=== PATIENT | female | born 1985 | race African-American/Black ===

== ENCOUNTER 2017-01-30 16:46 | Emergency (ER) | payer SELFPAY ==
[2017-01-30 16:54] VITALS: BP 152/69; PULSE 88; RESP 20; TEMP 98.2
--- NOTE | 2017-01-30 17:14 | ED ---
Female Urogenital HPI - General Chief complaint: Urogenital Stated complaint: Female Time Seen by Provider: 01/30/17 17:06 Source: patient, RN notes reviewed Mode of arrival: ambulatory Limitations: no limitations - History of Present Illness Initial comments: 31-year-old male presents emergency Department chief complaint vaginal discharge times one week. Patient states is a follow-up or to the. Patient states is slightly itchy but denies any pain. Patient denies any vaginal bleeding. She states is no chance though she did state that she had unprotected sex with a new partner. Patient states that she does have a history of STDs when she was younger. Patient denies abdominal pain, cramping, nausea, vomiting diarrhea constipation. Patient denies dysuria hematuria. Last Menstrual Period: 01/07/17 - Related Data Previous Rx's Medication Instructions Recorded metroNIDAZOLE [Flagyl] 500 mg PO TID #21 tab 01/30/17 Allergies Allergy/AdvReac Type Severity Reaction Status Date / Time No Known Allergies Allergy Verified 01/30/17 16:54 Review of Systems ROS Statement: Those systems with pertinent positive or pertinent negative responses have been documented in the HPI. ROS Other: All systems not noted in ROS Statement are negative. Past Medical History Past Medical History: Hypertension History of Any Multi-Drug Resistant Organisms: None Reported Past Surgical History: No Surgical Hx Reported Past Psychological History: No Psychological Hx Reported Smoking Status: Never smoker Past Alcohol Use History: Occasional General Exam Limitations: no limitations General appearance: alert, in no apparent distress Respiratory exam: Present: normal lung sounds bilaterally. Absent: respiratory distress, wheezes, rales, rhonchi, stridor Cardiovascular Exam: Present: regular rate, normal rhythm, normal heart sounds. Absent: systolic murmur, diastolic murmur, rubs, gallop, clicks GI/Abdominal exam: Present: soft, normal bowel sounds. Absent: distended, tenderness, guarding, rebound, rigid External exam: Present: normal external exam, other (Exam performed by Maggie MONIQUE) Speculum exam: Present: vaginal discharge (Clear to white discharge). Absent: vaginal bleeding By manual exam: Present: normal by manual exam Back exam: Absent: CVA tenderness (R), CVA tenderness (L) Neurological exam: Present: alert, oriented X3, CN II-XII intact Course Vital Signs 01/30/17 16:51 Temperature 98.2 F Pulse Rate 88 Respiratory 20 Rate Blood Pressure 152/69 O2 Sat by Pulse 99 Oximetry Medical Decision Making - Medical Decision Making 31-year-old male present emergency department for vaginal discharge. Patient appears to have bacterial vaginosis patient has pending cultures. Patient was treated with Flagyl at this time. Return parameters discussed. Disposition Clinical Impression: Bacterial vaginosis Disposition: HOME SELF-CARE Condition: Stable Instructions: Bacterial Vaginosis (ED) Additional Instructions: Please return to the Emergency Department if symptoms worsen or any other concerns. Prescriptions: metroNIDAZOLE [Flagyl] 500 mg PO TID #21 tab Time of Disposition: 17:31
[2017-01-30 18:31] LABS: Appearance,Urine Cloudy (Clear); Bilirubin,Urine Negative (Negative); Glucose,Urine (UA) Negative (Negative); Ketones,Urine Negative (Negative); Leukocyte Esterase,Urine Small (Negative); Mucus,Urine Occasional /hpf; Nitrite,Urine Negative (Negative); Particle Count 8264; Protein,Urine Trace (Negative); Specific Gravity,Urine 1.024 (1.001-1.035); Squamous Epithelial Cell,Urine 7 /hpf (0-4); UA Billing (MACRO vs. MICRO) MICRO; Urobilinogen,Urine <2.0 mg/dL (<2.0); WBC,Urine 1 /hpf (0-5)
== END 2017-01-30 18:00 | disposition home or self-care (01) ==
LOC: EC 16:46
DX: N76.0 Acute vaginitis (principal)
CPT/HCPCS: 81001; 81025; 87070; 87086; 87205; 87491; 87591; 87808; 99283

== ENCOUNTER 2019-12-03 21:47 | Emergency (ER) | payer OTHER ==
[2019-12-03] MEDS ORDERED: METOCLOPRAMIDE 5 MG/ML 2 ML VIAL IVP STA (22:07)
[2019-12-03] MEDS ORDERED: SODIUM CHLORIDE 0.9% 500 ML 500 ML IV ONE (22:07)
[2019-12-03] MEDS ORDERED: diphenhydrAMINE 50 MG/ML 1 ML VIAL IVP STA (22:08)
--- NOTE | 2019-12-03 22:20 | ED ---
General Adult HPI - General Chief complaint: Headache Stated complaint: Facial pain Time Seen by Provider: 12/03/19 21:58 Source: patient Mode of arrival: ambulatory Limitations: no limitations - History of Present Illness Initial comments: Patient presents the ED with her family for evaluation. Patient states that she has had pain in the region of her nose and periorbital region since yesterday. She also states that she has had a generalized headache since yesterday. Patient states that she had mild right lateral neck pain yesterday, but she att ributes that to a neck strain, and she states that her neck pain has since resolved. She denies posterior neck pain or neck stiffness. Patient denies trauma or injury, sudden onset of headache, LOC, fever or chills, focal numbness/weakness/neuro deficit, visual changes, speech problems, sore throat, cough or cold symptoms, chest pain, dyspnea, dizziness, abdominal pain, nausea or vomiting, or any other symptoms or complaints. - Related Data Previous Rx's Medication Instructions Recorded metroNIDAZOLE [Flagyl] 500 mg PO TID #21 tab 01/30/17 Allergies Allergy/AdvReac Type Severity Reaction Status Date / Time No Known Allergies Allergy Verified 12/03/19 21:52 Review of Systems ROS Statement: Those systems with pertinent positive or pertinent negative responses have been documented in the HPI. ROS Other: All systems not noted in ROS Statement are negative. Past Medical History Past Medical History: Hypertension Additional Past Medical History / Comment(s): glaucoma History of Any Multi-Drug Resistant Organisms: None Reported Past Surgical History: No Surgical Hx Reported, Section Past Psychological History: No Psychological Hx Reported Smoking Status: Never smoker Past Alcohol Use History: Occasional Past Drug Use History: None Reported General Exam Limitations: no limitations General appearance: alert, in no apparent distress Head exam: Present: atraumatic, normocephalic Eye exam: Present: normal appearance, PERRL, EOMI ENT exam: Present: normal oropharynx, mucous membranes moist Neck exam: Present: other (Trachea is in midline). Absent: tenderness, meningismus Respiratory exam: Present: normal lung sounds bilaterally. Absent: respiratory distress, wheezes, rales, rhonchi Cardiovascular Exam: Present: regular rate, normal rhythm, normal heart sounds, other (Normal radial pulses bilaterally) GI/Abdominal exam: Present: soft. Absent: distended, tenderness Extremities exam: Present: full ROM. Absent: pedal edema Neurological exam: Present: alert, oriented X3, CN II-XII intact. Absent: motor sensory deficit Psychiatric exam: Present: normal affect, normal mood Skin exam: Present: warm, dry, intact, normal color Course Vital Signs 12/03/19 12/03/19 12/04/19 21:49 23:51 00:23 Temperature 98.0 F 98.2 F Pulse Rate 101 H 77 92 Respiratory 16 14 15 Rate Blood Pressure 184/120 182/123 207/139 O2 Sat by Pulse 99 100 99 Oximetry - Reevaluation(s) Reevaluation #1: 12/04/19 01:33 Patient states that her headache/facial pain has now resolved. Patient denies development of any new symptoms while in the ED. Patient remains alert and alexandr athing comfortably. Patient's blood pressure remains elevated, but patient is currently asymptomatic. Patient states that she has a known history of hypertension for which she is supposed to be under treatment, but she is not. Was instructed to, and agrees to, follow up closely with her primary care provider for further evaluation and management of her hypertension. Patient was clearly explained return and follow-up instructions, and she was instructed to return to the ED should she develop new or worsening pain, neuro deficits, dyspnea, dizziness, chest pain, a fever, vomiting, or any other symptoms or complaints. Medical Decision Making - Medical Decision Making Patient's head CT is negative. I suspect that the patient's headache is benign in nature. Patient's headache has now resolved, and she denies development of any new symptoms while in the ED. Patient is currently asymptomatic. Patient's blood pressure remains elevated. Patient states that she has been diagnosed with hypertension in the past. I do not feel that any emergent/acute treatment of her elevated blood pressure is indicated at this time. Patient agrees to follow up with her primary care provider as an outpatient for further evaluations and management of her hypertension. Patient was clearly explained return and follow-up instructions. Patient feels comfortable with this plan. - Radiology Data Radiology results: report reviewed (Noncontrast head CT is negative) Disposition Clinical Impression: Headache, Hypertension Disposition: HOME SELF-CARE Condition: Stable Instructions (If sedation given, give patient instructions): Acute Headache (ED), Hypertension (ED) Additional Instructions: Return to the ER immediately should you develop new or worsening pain, a fever, numbness or weakness, vision or speech problems, chest pain, shortness of breath, vomiting, feeling dizzy or faint, or new or worsening symptoms. Follow up closely with your primary care provider. Is patient prescribed a controlled substance at d/c from ED?: No Referrals: None,Stated [Primary Care Provider] - 1-2 days Gisel Javier MD [REFERRING] - 1-2 days Time of Disposition: 01:35
--- NOTE | 2019-12-03 22:45 | CT ---
EXAMINATION TYPE: CT brain wo con DATE OF EXAM: 12/03/2019 COMPARISON: None HISTORY: Frontal WISDOM CT DLP: 1095.4 mGycm Automated exposure control for dose reduction was used. Ventricles and sulci appear normal. There is no mass effect nor midline shift. There is no sign of in tracranial hemorrhage. Calvarium is intact. There is no evidence of cerebral edema. IMPRESSION: Negative head CT scan.
[2019-12-04] MEDS ORDERED: HYDROmorphone 0.5 MG/0.5 ML SYRINGE IVP STA (00:06)
[2019-12-04 02:05] VITALS: BP 183/119; PULSE 86; RESP 12; TEMP 98.4
== END 2019-12-04 01:56 | disposition home or self-care (01) ==
LOC: EC 21:47
DX: I10 Essential (primary) hypertension (principal); R51 Headache
CPT/HCPCS: 70450; 99284; 96374; 96375 ×2; 96361; J1200; J2765; J1170

== ENCOUNTER → 2020-01-05 | Outpatient (CLI) | payer BC, OTHER ==
--- NOTE | 2020-01-05 12:10 | EST ---
EXERCISE STRESS DATE OF SERVICE: 01/05/2020. AGE: 34 SEX: Female HT: 5'2" WT: 208 pounds PROTOCOL: Андрей STAGE: II DURATION OF EXERCISE: 4 minutes 44 seconds HEART RATE REST: 86 BLOOD PRESSURE REST: 123/69 MAXIMUM HEART RATE ACHIEVED: 172 MAXIMUM BLOOD PRESSURE: 172/64 85% MPHR: 156 100% MPHR: 184 METS: 6.6 INDICATIONS: Hypertension. CLINICAL INFORMATION: Baseline EKG revealed normal sinus rhythm without significant ST and T-wave changes. There was voltage criteria for LVH. Patient walked for 4 minutes 44 seconds achieved a maximal heart rate of 172 beats per minute, developed fatigue, shortness of breath but did not have angina or arrhythmia. EKG did not reveal any ST-segment changes to indicate ischemia. By EKG criteria, this is a negative stress test with limited exercise capacity. The nuclear scan results which are more pertinent will be reported by the radiologist. MMODL / IJN: [id number] /
== END | disposition home or self-care (01) ==
LOC: RADNMMAIN 08:40
PROVIDERS: ATTEND Family Medicine
DX: R07.9 Chest pain, unspecified (principal)
CPT/HCPCS: 93017

== ENCOUNTER 2020-01-17 04:05 | Emergency (ER) | payer BC, OTHER ==
[2020-01-17 04:18] VITALS: RESP 18
[2020-01-17] MEDS ORDERED: KETOROLAC 60 MG/2 ML VIAL IM STA (04:48)
[2020-01-17] MEDS ORDERED: ORPHENADRINE 30 MG/ML 2 ML VIAL IM STA (04:48)
--- NOTE | 2020-01-17 04:53 | ED ---
Neck Injury/Pain HPI - General Chief Complaint: Neck Pain/Injury Stated Complaint: head/neck pain Time Seen by Provider: 01/17/20 04:35 Mode of arrival: ambulatory Limitations: no limitations - History of Present Illness Initial Comments: 's patient is a 34-year-old woman who presents to have evaluation for pain to the right side of her neck. She states that it had started a number weeks ago, and she was actually seen here for it as well. She states that since it had started this come and gone. It was acting up this evening starting about 5 hours ago. She states that she finds it difficult to turn her neck: The pain is there. She feels as if her neck and shoulder stiffness. She is not having any midline neck pain. No neurologic symptoms. No symptoms into the arm. No loss of strength or sensation. MD Complaint: neck pain -: week(s) Place: work Radiation: right lateral Severity: severe Quality: aching Consistency: intermittent Improves With: none Worsens With: movement of neck Associated Symptoms: headache Treatments Prior to Arrival: Ibuprofen - Related Data Previous Rx's Medication Instructions Recorded Ibuprofen 800 mg PO TID #20 tablet 01/17/20 Methocarbamol [Robaxin-750] 750 mg PO TID PRN #30 tablet 01/17/20 Allergies Allergy/AdvReac Type Severity Reaction Status Date / Time No Known Allergies Allergy Verified 12/03/19 21:52 Review of Systems ROS Statement: Those systems with pertinent positive or pertinent negative responses have been documented in the HPI. ROS Other: All systems not noted in ROS Statement are negative. Constitutional: Denies: fever, chills, weakness Eyes: Denies: vision change Respiratory: Denies: cough, dyspnea Cardiovascular: Denies: chest pain, palpitations, syncope Gastrointestinal: Denies: abdominal pain, nausea, vomiting Musculoskeletal: Denies: back pain Skin: Denies: rash Neurological: Denies: weakness, numbness, paresthesias Past Medical History Past Medical History: Hypertension Additional Past Medical History / Comment(s): glaucoma History of Any Multi-Drug Resistant Organisms: None Reported Past Surgical History: Section Past Psychological History: No Psychological Hx Reported Smoking Status: Never smoker Past Alcohol Use History: Occasional Past Drug Use History: None Reported General Exam Limitations: no limitations General appearance: alert, in no apparent distress Head exam: Present: atraumatic, normocephalic Eye exam: Present: normal appearance. Absent: scleral icterus, conjunctival injection Neck exam: Present: normal inspection, tenderness. Absent: meningismus, full ROM Respiratory exam: Present: normal lung sounds bilaterally. Absent: respiratory distress, wheezes, rales, rhonchi, stridor Cardiovascular Exam: Present: regular rate, normal rhythm, normal heart sounds, other (Radial pulses are symmetric and normal in strength). Absent: systolic murmur, diastolic murmur Extremities exam: Present: normal inspection Back exam: Present: normal inspection. Absent: vertebral tenderness Neurological exam: Present: alert. Absent: motor sensory deficit Skin exam: Present: warm, dry, intact, normal color. Absent: rash Course Vital Signs 01/17/20 01/17/20 04:13 05:19 Temperature 98.1 F Pulse Rate 122 H 95 Respiratory 18 18 Rate Blood Pressure 125/77 131/79 O2 Sat by Pulse 100 98 Oximetry Disposition Clinical Impression: Acute torticollis Disposition: HOME SELF-CARE Condition: Good Instructions (If sedation given, give patient instructions): Cervical Strain (ED) Prescriptions: Ibuprofen 800 mg PO TID #20 tablet Methocarbamol [Robaxin-750] 750 mg PO TID PRN #30 tablet PRN Reason: pain Is patient prescribed a controlled substance at d/c from ED?: No Referrals: Willie Santos MD [Primary Care Provider] - 1-2 days
[2020-01-17 06:23] VITALS: BP 125/85; PULSE 97; TEMP 97.8
== END 2020-01-17 06:23 | disposition home or self-care (01) ==
LOC: EC 04:05
DX: M43.6 Torticollis (principal)
CPT/HCPCS: 99283; 96372 ×2; J2360; J1885

== ENCOUNTER → 2020-01-30 | Outpatient (CLI) | payer BC, OTHER ==
--- NOTE | 2020-01-30 11:26 | USB ---
Reason for exam: clinical finding. Indicated problem(s): lump or thickening in the left breast. Physical Findings: Nurse did not find any significant physical abnormalities on exam. US Breast LT Left complete breast ultrasound includes all four quadrants, the retroareolar region and axilla. Finding demonstrates no cystic or solid lesion seen. These results were verbally communicated with the patient and result sheet given to the patient on 01/30/20. ASSESSMENT: Negative, BI-RAD 1 RECOMMENDATION: Routine screening mammogram of both breasts at age 38. Manage patient on a clinical basis.
== END | disposition home or self-care (01) ==
LOC: RADUSWWP 10:19
PROVIDERS: ATTEND Family Medicine
DX: N63.20 Unspecified lump in the left breast, unspecified quadrant (principal)

== ENCOUNTER → 2021-06-04 | Outpatient (CLI) | payer BC ==
[2021-06-04 10:50] LABS: Basophils % (A) 1 %; Eosinophils % (A) 2 %; HCT 30.9 % (34.0-46.0); HGB 9.9 gm/dL (11.4-16.0); Hypochromasia Moderate; Lymphocytes % (A) 26 %; MCH 28.9 pg (25.0-35.0); MCV 90.4 fL (80.0-100.0); Mean Platelet Volume 7.3; Monocytes % (A) 5 %; Neutrophils # (A) 4.3 k/uL (1.3-7.7); Neutrophils % (A) 64 %; Platelet Count 444 k/uL (150-450); Poikilocytosis Slight; RBC 3.42 m/uL (3.80-5.40); RDW 15.7 % (11.5-15.5); WBC 6.7 k/uL (3.8-10.6)
[2021-06-04 10:51] LABS: Eosinophils # (A) 0.1 k/uL (0-0.7); Lymphocytes # (A) 1.7 k/uL (1.0-4.8); Monocytes # (A) 0.4 k/uL (0-1.0)
== END | disposition home or self-care (01) ==
LOC: LABPAT 09:22
PROVIDERS: ATTEND Obstetrics & Gynecology
DX: Z01.812 Encounter for preprocedural laboratory examination (principal); D64.9 Anemia, unspecified; N92.1 Excessive and frequent menstruation with irregular cycle; I10 Essential (primary) hypertension
CPT/HCPCS: 85025

== ENCOUNTER 2021-06-09 06:34 | Day surgery (SDC) | payer BC ==
[2021-06-06 11:17] VITALS: BMI 37.6
[~2021-06-09 06:34] MED LIST: DEXAMETHASONE SOD PHOSPHATE 4 MG/ML 1 ML VIAL IV ONE; HYDROmorphone 0.5 MG/0.5 ML SYRINGE IVP PRN; LACTATED RINGERS 1,000 ML IV SCH; LIDOCAINE 1% (10MG/ML) FOR IV START INTRADERMA PRN; MIDAZOLAM 2 MG/2 ML VIAL IV PRN; ONDANSETRON 4 MG/2 ML VIAL IVP ONE; Pre Op ABX Message 1 EACH MISC MISCELLANE ONE
[2021-06-09 07:14] VITALS: TEMP 96.9
[2021-06-09] MEDS ORDERED: KETOROLAC 15 MG/ML 1 ML VIAL ONE (07:47)
[2021-06-09] MEDS ORDERED: PROPOFOL 10 MG/ML 20 ML VIAL IV ONE (07:47)
[2021-06-09] MEDS ORDERED: LIDOCAINE 1% INJ 10MG/ML (20 ML MDV) ONE (07:47)
--- NOTE | 2021-06-09 08:20 | P.OP ---
Date of Procedure: 06/09/21 Preoperative Diagnosis: Menorrhagia, anemia Postoperative Diagnosis: Endometrial polyps Procedure(s) Performed: Hysteroscopy, D&C, NovaSure endometrial ablation Anesthesia: HONORIOA Surgeon: Alisha Alberts Estimated Blood Loss (ml): 20 IV fluids (ml): 400 Urine output (ml): 20 Pathology: other (Endometrial curettings and polyps) Condition: stable Disposition: PACU Operative Findings: Several small benign-appearing polyps in the endometrial cavity. Description of Procedure: Patient is brought to the operating suite where a general anesthetic is administered. The appropriate timeout is performed to assure proper patient and procedural identification. Urine hCG is negative. The cervix, vagina, perineal bodies are all prepped and draped in the usual sterile fashion. Bladder is drained for approximately 20 mL of clear yellow urine. Examination under anesthesia reveals an anteverted uterus, slightly enlarged and bulky, negative adnexa bilaterally. Weighted speculum was placed into the vagina. Anterior lip of the cervix is grasped with a double-tooth tenaculum. Uterus sounds to a depth of 9 cm in the anteverted position. The cervix is gently and systematically dilated using Hanks dilators, very little resistance noted. Hysteroscope was placed and the cavity is infused with sterile saline. In inspecting the endometrial cavity there are several benign-appearing polyps noted. Decision is made to curettage with a sharp medium curette. The tissue is sent to pathology for evaluation. At this time the NovaSure wand is placed and seated. It is enabled. It is calibrated to the machine, uterine length 6.5 cm, width 4.6 cm. After the machine is turned on the cycle is completed. The wand is then reduced and removed. For 34 seconds the procedure is carried out with a power of 164 W. Introducing the hysteroscope revealed the cavity to be nicely blanched, no residual polyps or tissue noted. Double-tooth tenaculum is removed, cervix is clean and dry. All sponge needle and enhancement counts are correct at the end of the procedure. Patient is brought back to recovery room in very good condition with stable vital signs including a pulse of 81, 100% O2 saturation, blood pressure 121/73. Toradol is given prior to her leaving the operative room. She will follow-up with me in the office in 2 weeks. Written postoperative instructions are provided.
[2021-06-09 08:43] VITALS: RESP 16
[2021-06-09 09:19] VITALS: BP 155/98; PULSE 65
[2021-06-09] MEDS ORDERED: ACETAMINOPHEN TAB 325 MG TAB ONE (09:22)
[2021-06-09] MEDS ORDERED: ACETAMINOPHEN TAB 325 MG TAB PO ONE (09:23)
== END 2021-06-09 10:05 | disposition home or self-care (01) ==
LOC: OR 06:34
PROVIDERS: ATTEND Obstetrics & Gynecology
DX: N84.0 Polyp of corpus uteri (principal); N92.0 Excessive and frequent menstruation with regular cycle; I10 Essential (primary) hypertension; F32.9 Major depressive disorder, single episode, unspecified
CPT/HCPCS: 58563; 81025; 88305; J1100; J2405; J2001; J1885; J2704

== ENCOUNTER → 2021-11-19 | Outpatient (CLI) | payer BC ==
--- NOTE | 2021-11-19 12:34 | CONS ---
CONSULTATION DATE OF SERVICE: 11/19/2021 This 36-year-old lady has been evaluated in the sleep center for possible obstructive sleep apnea-hypopnea syndrome and significant excessive daytime sleepiness. HISTORY OF PRESENT ILLNESS/SLEEP-WAKE EVALUATION: Patient's usual sleep schedule on weekdays is from between midnight and 3 a.m. until 6:30 or 7 a.m. and on weekends she does not have any scheduled time. She usually wakes up about 5:30 in the morning. No problems with falling asleep, although she has a TV set in the bedroom. She snores, according to her family, and she wakes up from sleep with up to 2 episodes of nocturia. Sometimes her snoring is very mild, but sometimes it is extremely loud, according to the family. No history of hypnagogic hallucinations, sleep paralysis or cataplexy. [place] Sleepiness Scale in high range at 15. The patient may take up to 2 naps a day. PAST MEDICAL HISTORY: Positive for hypertension, allergies, exercise-induced asthma, iron deficiency anemia. PAST SURGICAL HISTORY: Uterus ablation for bleeding. . MEDICATIONS: 1. Bupropion 150 mg twice a day. 2. Losartan 100 mg once a day. 3. Chlorthalidone 25 mg once a day. 4. Diphenhydramine 25 mg 2 or 3 times a day. 5. Albuterol inhaler if necessary. SOCIAL HISTORY: Negative for smoking. Alcohol consumption occasional. FAMILY HISTORY: Heart problems, stroke. REVIEW OF SYSTEMS: Multiple awakenings from sleep, sleepiness during the day. No fevers. No double vision. No recent chest pain. No shortness of breath. No abdominal pain. No bleeding episodes. No blood in the urine. No seizure episodes. PHYSICAL EXAMINATION: GENERAL APPEARANCE: Pleasant 36-year-old -[place]ux[place] lady without distress. VITAL SIGNS: BP 128/89, HR 74, RR 16, height 5 feet 3-1/2 inches, weight 215 pounds, body mass index 37.4, temperature 97.2, oxygen saturation at room air 96%. HEENT: PERRLA, EOMI, evaluation of oropharynx showed tongue protrudes midline. Small oropharyngeal airspace. Low position of soft palate; Mallampati III to IV. NECK: Supple, no JVD. Thyroid is not palpable. Neck measures 16 inches in circumference. LUNGS: Clear to percussion and to auscultation. Good air exchange. No wheezing or rhonchi. HEART: S1, S2 regular. No murmurs, gallops, or rubs. ABDOMEN: Slightly obese. EXTREMITIES: No clubbing or cyanosis. ASSISTANT TEACHER PRIMARY: Awake, alert, and oriented X3. Cranial nerves 2 to 7 intact. There is no fasciculation or atrophy. noted. No focal deficits observed. IMPRESSION: 1. Snoring, awakenings from sleep with nocturia, low position of soft palate, Mallampati III to IV, wide neck, 16 inches in circumference, sleepiness, [place] Sleepiness Scale 15; obstructive sleep apnea-hypopnea syndrome. 2. Significant excessive daytime sleepiness with [place] Sleepiness Scale 15, dictating necessity to include hypersomnia and narcolepsy in differential diagnosis. 3. Obesity. BMI 37.4. 4. Depression. 5. Hypertension. 6. Allergies. 7. History of exercise-induced asthma. 8. History of iron deficiency anemia. 9. Status post uterus ablation for bleeding in May of 2021. PLAN: 1. Home sleep apnea test for evaluation of patient's breathing during sleep. 2. Following plan after reviewing results of home sleep apnea test. 3. If home sleep apnea test is negative for obstructive sleep apnea-hypopnea syndrome, please perform following multiple sleep latency test for objective evaluation of patient's symptoms of excessive daytime sleepiness. 4. Watching and losing weight. 5. No driving if feeling sleepiness. Thank you very much for referring this patient for consultation. Sincerely, Sujit Krishna MD, PhD, FAASM Diplomat of [place] [employer] Sleep Medicine Board of [place] [employer] Junior Mechanical Engineer of [facility] [place] MMODL / CHINON: [id number] /
== END ==
LOC: SLEEP 10:46
PROVIDERS: ATTEND Internal Medicine
DX: G47.33 Obstructive sleep apnea (adult) (pediatric) (principal); E66.9 Obesity, unspecified; F32.A Depression, unspecified; I10 Essential (primary) hypertension; T78.40XA Allergy, unspecified, initial encounter; J45.990 Exercise induced bronchospasm; Z98.890 Other specified postprocedural states; Z68.37 Body mass index [BMI] 37.0-37.9, adult; Z79.899 Other long term (current) drug therapy
CPT/HCPCS: 99211

== ENCOUNTER → 2022-05-06 | Outpatient (CLI) | payer OTHER ==
--- NOTE | 2022-05-06 12:40 | P.PN ---
Subjective DATE: 05/06/2022 FOLLOW UP VISIT. Patient with obstructive sleep apnea hypopnea syndrome return to sleep center for follow-up visit. Of this service the first visit after patient was started on treatment with CPAP. I discuss results of sleep study with patient in details. Home sleep apnea test showed mild obstructive sleep apnea hypopnea syndrome. After patient was started on treatment with CPAP she sleeps better. [place] sleepiness scale is 12. She continued to feel sleepiness during the day. I checked information from PAP unit. PAP unit pressure 5- 12 cm H2O. Usage is 20 % for more then 4 hours, average 4.5 hours per night. Leak is 15.6 l/m, which is in acceptable range. Apnea Hypopnea Index is 1.0, which is normal. MEDICATIONS:1. Bupropion 2. Losartan 3. Albuterol During physical exam: GENERAL: A pleasant patient without any distress. VITAL SIGNS: BP 120/82, HR 79, RR 16, weight 212, temperature 97.2, oxygen saturation at room air 98. HEENT: PERRLA, EOMI.low position of soft palate, Mallapati 3-4. NECK: Supple. No JVD. LUNGS: Clear to percussion and to auscultation. Good air exchange. No wheezing or rhonchi. HEART: S1, S2 regular. ABDOMEN: Soft and nontender. Slightly obese EXTREMITIES: No clubbing or cyanosis. CARDIO CLINICIAN: Awake, alert, and oriented x3. No focal deficit. Impressions: 1. Obstructive sleep apnea-hypopnea syndrome. Patient did not demonstrated good compliance with treatment, but benefiting from treatment. 2. Significant excessive daytime sleepiness. 3. Obesity. 4. Depression. 5. Hypertension. 6. ALLERGIES. 7. History of exercise induced asthma. 8. History of iron deficiency anemia. 9. Status post uterus ablation for bleeding in May 2021. Plan: 1. Continue using PAP equipment every night for the whole night. To restart new trial on CPAP. Patient promised to use CPAP equipment every night for the whole night. 2. To change air filter at least 1-2 times per month. 3. PAP unit should stay lower then position of the head. 4. Advised patient to remove all remaining water from humidifier canister daily and make it dry after each usage. Refill canister with fresh distilled water before each usage. 5. Sleep hygiene with regular time in bed for at least 8 hours. 6. Precautions related to driving. No driving if feel any sleepiness. 7. I will maintain prescription for PAP supplies including mask, tube, filters. 8. Follow up visit in 6 months or earlier if patient has any problems. 9. Watching weight. 10. If patient will continue to have symptoms of significant excessive daytime sleepiness while on treatment with CPAP we may consider multiple sleep latency test. Thank you very much for allowing me to participate in the management of your patient. Sujit Krishna MD, PhD, FAASM. Diplomat of [place] [employer], Sleep Medicine Board by [place] [employer] Guest Relation Officer of [facility] [place]
== END ==
LOC: SLEEP 10:16
PROVIDERS: ATTEND Internal Medicine
DX: G47.33 Obstructive sleep apnea (adult) (pediatric) (principal); E66.9 Obesity, unspecified; F32.A Depression, unspecified; I10 Essential (primary) hypertension; J45.909 Unspecified asthma, uncomplicated; Z98.890 Other specified postprocedural states; T78.40XA Allergy, unspecified, initial encounter; Z79.51 Long term (current) use of inhaled steroids; Z86.2 Personal history of diseases of the blood and blood-forming organs and certain disorders involving the immune mechanism; Z99.89 Dependence on other enabling machines and devices; Z79.899 Other long term (current) drug therapy

== ENCOUNTER 2022-10-02 14:29 | Emergency (ER) | payer BC, OTHER ==
[2022-10-02 15:37] VITALS: TEMP 98.1
[2022-10-02] MEDS ORDERED: SODIUM CHLORIDE 0.9% 1,000 ML IV STA (19:56)
[2022-10-02] MEDS ORDERED: ONDANSETRON 4 MG/2 ML VIAL IVP STA (19:56)
[2022-10-02] MEDS ORDERED: KETOROLAC 15 MG/ML 1 ML VIAL IVP STA (19:56)
--- NOTE | 2022-10-02 20:12 | ED ---
General Adult HPI - General Chief complaint: Vaginal Bleeding Stated complaint: Heavy menstrual bleed Time Seen by Provider: 10/02/22 19:39 Source: patient, RN notes reviewed Mode of arrival: ambulatory Limitations: no limitations - History of Present Illness Initial comments: 37-year-old female, , presents to the emergency Department with complaints of heavy vaginal bleeding, onset last night. Reports bright red bleeding and passing several clots. Patient states she had a similar situation approximately a year ago requiring blood transfusion and a uterine ablation. States she contacted her porter marina but was unable to be seen in the office today or was advised to go to the emergency room for further evaluation and treatment. Patient complains of lower abdominal cramping discomfort. States she has had urinary frequency. Reports sexual activity with no additional contraceptive measures. 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 Denies fever, ch ills, headache, dizziness, lightheadedness, chest pain, shortness of breath, flank pain, back pain, vomiting, and diarrhea. - Related Data Home Medications Medication Instructions Recorded Confirmed Chlorthalidone [Hygroton] 25 mg PO DAILY 06/06/21 06/09/21 Ergocalciferol [Vitamin D2 (1250 50,000 unit PO QMONTHLY 06/06/21 06/09/21 Mcg = 65561 Iu)] Ferrous Sulfate [Iron] 325 mg PO TID 06/06/21 06/09/21 Ibuprofen 800 mg PO TID PRN 06/06/21 06/09/21 Losartan Potassium [Cozaar] 100 mg PO DAILY 06/06/21 06/09/21 buPROPion HCL [Wellbutrin SR] 150 mg PO Q12H 06/06/21 06/09/21 diphenhydrAMINE [Benadryl] 25 mg PO DAILY PRN 06/06/21 06/09/21 Allergies Allergy/AdvReac Type Severity Reaction Status Date / Time No Known Allergies Allergy Verified 10/02/22 15:37 Review of Systems ROS Statement: Those systems with pertinent positive or pertinent negative responses have been documented in the HPI. ROS Other: All systems not noted in ROS Statement are negative. Past Medical History Past Medical History: Hypertension Additional Past Medical History / Comment(s): glaucoma History of Any Multi-Drug Resistant Organisms: None Reported Past Surgical History: Section Past Psychological History: No Psychological Hx Reported Smoking Status: Never smoker Past Alcohol Use History: Occasional Past Drug Use History: None Reported General Exam Limitations: no limitations General appearance: alert, anxious (Well-developed, well-nourished female in no acute distress, though is anxious and tearful. Initial temperature 98.1, pulse 45, respirations 20, blood pressure 142/90, pulse ox 98% on room air.) Eye exam: Present: normal appearance, EOMI. Absent: scleral icterus, conjunctival injection ENT exam: Present: normal exam, normal oropharynx, mucous membranes moist Respiratory exam: Present: normal lung sounds bilaterally. Absent: respiratory distress, wheezes, rales, rhonchi, stridor, chest wall tenderness Cardiovascular Exam: Present: regular rate, normal rhythm, normal heart sounds. Absent: systolic murmur, diastolic murmur, rubs, gallop, clicks GI/Abdominal exam: Present: soft, normal bowel sounds. Absent: distended, t enderness, guarding, rebound, rigid External exam: Present: normal external exam Speculum exam: Present: vaginal bleeding, other (speculum exam reveals bright red bleeding with dark red coagulated blood removed. patient endorses saturating 1-2 pads/hour) By manual exam: Absent: cervical motion tenderness, adnexal tenderness Back exam: Absent: CVA tenderness (R), CVA tenderness (L) Neurological exam: Present: alert, oriented X3, normal gait Psychiatric exam: Present: anxious Skin exam: Present: warm, dry, intact, normal color. Absent: rash Course Vital Signs 10/02/22 10/02/22 10/02/22 15:34 19:37 23:05 Temperature 98.1 F Pulse Rate 75 106 H 77 Respiratory 20 18 16 Rate Blood Pressure 142/90 160/92 130/98 O2 Sat by Pulse 98 97 98 Oximetry - Reevaluation(s) Reevaluation #1: 10/02/22 22:00 Upon reevaluation, patient ongoing discomfort therefore will be given Morphine. States bleeding has slowed down. Continues to deny feeling dizzy or lightheaded. Tolerating oral intake without difficulty. 10/02/22 22:45 This patient's care was discussed with my attending, Dr. Beasley. Given patient's stable vital signs and labs, but ongoing bleeding he recommends TXA. Discussed this with patient. She was encouraged to follow up with her OPERATING ROOM ASSISTANT on Wednesday. Patient agreeable to this plan of care. Medical Decision Making - Medical Decision Making 37-year-old female with a past medical history of menorrhagia and previous uterine ablation presents to the emergency Department with complaints of heavy vaginal bleeding, onset last night. Upon exam, patient is tearful and somewhat anxious, though in no acute distress. Vital signs are stable. Physical exam findings do reveal bright red uterine bleeding with dark coagulated blood collecting in the vaginal vault. Clots removed. No CMT or adnexal pain. Endorses moderate amount of abdominal cramping for which Toradol and Morphine were given with modest improvement. Laboratory studies were obtained showing stable hemoglobin and hematocrit. Liver enzymes are mildly elevated; patient is encouraged to follow up with her PCP for reevaluation. Urinalysis is contaminated with moderate amount of blood, but no evidence of infectious process. Patient was given IV fluids, pain medicine, and TXA. She is instructed to follow up with gynecology on Wednesday for further evaluation and treatment. Return parameters discussed in detail. Patient verbalizes understanding and agrees with this plan. This patient's care was discussed with my attending, Dr. Beasley. - Lab Data Result diagrams: 10/02/22 20:05 10/02/22 20:05 Lab Results 10/02/22 10/02/22 10/02/22 Range/Units 20:00 20:05 20:05 WBC 8.2 (3.8-10.6) k/uL RBC 4.26 (3.80-5.40) m/uL Hgb 12.5 (11.4-16.0) gm/dL Hct 37.1 (34.0-46.0) % MCV 87.2 (80.0-100.0) fL MCH 29.5 (25.0-35.0) pg MCHC 33.8 (31.0-37.0) g/dL RDW 13.4 (11.5-15.5) % Plt Count 411 (150-450) k/uL MPV 8.0 Neutrophils % 55 % Lymphocytes % 34 % Monocytes % 5 % Eosinophils % 3 % Basophils % 1 % Neutrophils # 4.5 (1.3-7.7) k/uL Lymphocytes # 2.8 (1.0-4.8) k/uL Monocytes # 0.4 (0-1.0) k/uL Eosinophils # 0.3 (0-0.7) k/uL Basophils # 0.1 (0-0.2) k/uL PT 12.5 H (9.0-12.0) sec INR 1.2 H (<1.2) APTT 26.7 (22.0-30.0) sec Sodium (137-145) mmol/L Potassium (3.5-5.1) mmol/L Chloride (98-107) mmol/L Carbon Dioxide (22-30) mmol/L Anion Gap mmol/L BUN (7-17) mg/dL Creatinine (0.52-1.04) mg/dL Est GFR (CKD-EPI)AfAm (>60 ml/min/1.73 sqM) Est GFR (CKD-EPI)NonAf (>60 ml/min/1.73 sqM) Glucose (74-99) mg/dL Calcium (8.4-10.2) mg/dL Total Bilirubin (0.2-1.3) mg/dL AST (14-36) U/L ALT (4-34) U/L Alkaline Phosphatase (38-126) U/L Total Protein (6.3-8.2) g/dL Albumin (3.5-5.0) g/dL Urine Color Urine Appearance (Clear) Urine pH (5.0-8.0) Ur Specific [place] (1.001-1.035) Urine Protein (Negative) Urine Glucose (UA) (Negative) Urine Ketones (Negative) Urine Blood (Negative) Urine Nitrite (Negative) Urine Bilirubin (Negative) Urine Urobilinogen (<2.0) mg/dL Ur Leukocyte Esterase (Negative) Urine RBC (0-5) /hpf Urine WBC (0-5) /hpf Ur Squamous Epith Cells (0-4) /hpf Urine Mucus (None) /hpf Urine HCG, Qual (Not Detectd) Blood Type Blood Type Confirm O Positive Blood Type Recheck Bld Type Recheck Status Antibody Screen Spec Expiration Date 10/02/22 10/02/22 10/02/22 Range/Units 20:05 20:05 22:05 WBC (3.8-10.6) k/uL RBC (3.80-5.40) m/uL Hgb (11.4-16.0) gm/dL Hct (34.0-46.0) % MCV (80.0-100.0) fL MCH (25.0-35.0) pg MCHC (31.0-37.0) g/dL RDW (11.5-15.5) % Plt Count (150-450) k/uL MPV Neutrophils % % Lymphocytes % % Monocytes % % Eosinophils % % Basophils % % Neutrophils # (1.3-7.7) k/uL Lymphocytes # (1.0-4.8) k/uL Monocytes # (0-1.0) k/uL Eosinophils # (0-0.7) k/uL Basophils # (0-0.2) k/uL PT (9.0-12.0) sec INR (<1.2) APTT (22.0-30.0) sec Sodium 141 (137-145) mmol/L Potassium 3.9 (3.5-5.1) mmol/L Chloride 106 (98-107) mmol/L Carbon Dioxide 25 (22-30) mmol/L Anion Gap 10 mmol/L BUN 8 (7-17) mg/dL Creatinine 0.73 (0.52-1.04) mg/dL Est GFR (CKD-EPI)AfAm >90 (>60 ml/min/1.73 sqM) Est GFR (CKD-EPI)NonAf >90 (>60 ml/min/1.73 sqM) Glucose 99 (74-99) mg/dL Calcium 9.6 (8.4-10.2) mg/dL Total Bilirubin 0.3 (0.2-1.3) mg/dL AST 47 H (14-36) U/L ALT 55 H (4-34) U/L Alkaline Phosphatase 78 (38-126) U/L Total Protein 8.8 H (6.3-8.2) g/dL Albumin 4.8 (3.5-5.0) g/dL Urine Color Yellow Urine Appearance Clear (Clear) Urine pH 5.5 (5.0-8.0) Ur Specific [place] 1.027 (1.001-1.035) Urine Protein Trace H (Negative) Urine Glucose (UA) Negative (Negative) Urine Ketones Negative (Negative) Urine Blood Moderate H (Negative) Urine Nitrite Negative (Negative) Urine Bilirubin Negative (Negative) Urine Urobilinogen <2.0 (<2.0) mg/dL Ur Leukocyte Esterase Negative (Negative) Urine RBC 7 H (0-5) /hpf Urine WBC 3 (0-5) /hpf Ur Squamous Epith Cells 1 (0-4) /hpf Urine Mucus Many H (None) /hpf Urine HCG, Qual (Not Detectd) Blood Type O Positive Blood Type Confirm Blood Type Recheck No Previous Record Bld Type Recheck Status CABO Indicated Antibody Screen NEGATIVE Spec Expiration Date 10/05/2022 - 230410/02/22 Range/Units 22:05 WBC (3.8-10.6) k/uL RBC (3.80-5.40) m/uL Hgb (11.4-16.0) gm/dL Hct (34.0-46.0) % MCV (80.0-100.0) fL MCH (25.0-35.0) pg MCHC (31.0-37.0) g/dL RDW (11.5-15.5) % Plt Count (150-450) k/uL MPV Neutrophils % % Lymphocytes % % Monocytes % % Eosinophils % % Basophils % % Neutrophils # (1.3-7.7) k/uL Lymphocytes # (1.0-4.8) k/uL Monocytes # (0-1.0) k/uL Eosinophils # (0-0.7) k/uL Basophils # (0-0.2) k/uL PT (9.0-12.0) sec INR (<1.2) APTT (22.0-30.0) sec Sodium (137-145) mmol/L Potassium (3.5-5.1) mmol/L Chloride (98-107) mmol/L Carbon Dioxide (22-30) mmol/L Anion Gap mmol/L BUN (7-17) mg/dL Creatinine (0.52-1.04) mg/dL Est GFR (CKD-EPI)AfAm (>60 ml/min/1.73 sqM) Est GFR (CKD-EPI)NonAf (>60 ml/min/1.73 sqM) Glucose (74-99) mg/dL Calcium (8.4-10.2) mg/dL Total Bilirubin (0.2-1.3) mg/dL AST (14-36) U/L ALT (4-34) U/L Alkaline Phosphatase (38-126) U/L Total Protein (6.3-8.2) g/dL Albumin (3.5-5.0) g/dL Urine Color Urine Appearance (Clear) Urine pH (5.0-8.0) Ur Specific [place] (1.001-1.035) Urine Protein (Negative) Urine Glucose (UA) (Negative) Urine Ketones (Negative) Urine Blood (Negative) Urine Nitrite (Negative) Urine Bilirubin (Negative) Urine Urobilinogen (<2.0) mg/dL Ur Leukocyte Esterase (Negative) Urine RBC (0-5) /hpf Urine WBC (0-5) /hpf Ur Squamous Epith Cells (0-4) /hpf Urine Mucus (None) /hpf Urine HCG, Qual Not Detected (Not Detectd) Blood Type Blood Type Confirm Blood Type Recheck Bld Type Recheck Status Antibody Screen Spec Expiration Date - Radiology Data Radiology results: report reviewed, image reviewed Transvaginal ultrasound was obtained. Report was reviewed in its entirety. Impression per is there is borderline thickening of the endometrium measuring 14 mm. No adnexal mass. No free fluid. Disposition Clinical Impression: Menorrhagia Disposition: HOME SELF-CARE Condition: Stable Instructions (If sedation given, give patient instructions): Dysmenorrhea (ED) Additional Instructions: Rest. Increase fluids. May take Tylenol or Motrin if needed for pain. Consider heating pad for cramping discomfort. Call your Card Sorter on Wednesday to schedule a follow up appointment to be seen in the office. Return to the emergency department if feeling dizzy/lightheaded, worsening bleeding, you develop a fever, or have any other concerns. Is patient prescribed a controlled substance at d/c from ED?: No Referrals: Willie Santos MD [Primary Care Provider] - 1-2 days Alisha Alberts MD [STAFF PHYSICIAN] - 1-2 days
[2022-10-02 20:29] LABS: Basophils # (A) 0.1 k/uL (0-0.2); Basophils % (A) 1 %; Eosinophils # (A) 0.3 k/uL (0-0.7); Eosinophils % (A) 3 %; HCT 37.1 % (34.0-46.0); HGB 12.5 gm/dL (11.4-16.0); Lymphocytes # (A) 2.8 k/uL (1.0-4.8); Lymphocytes % (A) 34 %; MCH 29.5 pg (25.0-35.0); MCHC 33.8 g/dL (31.0-37.0); MCV 87.2 fL (80.0-100.0); Monocytes # (A) 0.4 k/uL (0-1.0); Monocytes % (A) 5 %; Neutrophils # (A) 4.5 k/uL (1.3-7.7); Neutrophils % (A) 55 %; Platelet Count 411 k/uL (150-450); RBC 4.26 m/uL (3.80-5.40); RDW 13.4 % (11.5-15.5); WBC 8.2 k/uL (3.8-10.6)
[2022-10-02 20:37] LABS: INR 1.2 (<1.2); Prothrombin Time 12.5 sec (9.0-12.0)
[2022-10-02 20:38] LABS: Partial Thromboplastin Time 26.7 sec (22.0-30.0)
[2022-10-02 20:40] LABS: ALT 55 U/L (4-34); AST 47 U/L (14-36); African American GFR (CKD) >90 (>60 ml/min/1.73 sqM); Albumin 4.8 g/dL (3.5-5.0); Alkaline Phosphatase 78 U/L (38-126); Anion Gap 10 mmol/L; Blood Urea Nitrogen 8 mg/dL (7-17); Calcium 9.6 mg/dL (8.4-10.2); Carbon Dioxide 25 mmol/L (22-30); Chloride 106 mmol/L (98-107); Glucose 99 mg/dL (74-99); Non-African American GFR(CKD) >90 (>60 ml/min/1.73 sqM); Potassium 3.9 mmol/L (3.5-5.1); Sodium 141 mmol/L (137-145); Total Bilirubin 0.3 mg/dL (0.2-1.3); Total Protein 8.8 g/dL (6.3-8.2)
--- NOTE | 2022-10-02 20:55 | US ---
EXAMINATION TYPE: US transvaginal DATE OF EXAM: 10/02/2022 COMPARISON: NONE CLINICAL HISTORY: heavy vaginal bleeding. heavy bleeding x 2 days. Patient states she started progest erone 1 week ago. . 1 . Pt had an ablation last year. TECHNIQUE: . Transvaginal sonographic images of the pelvis were acquired. Date of LMP: 09/23/22 EXAM MEASUREMENTS: Uterus: 11.0 x 7.5 x 5.9 cm Endometrial Stripe: 1.6 cm Right Ovary: 3.6 x 2.9 x 1.6 cm Left Ovary: ? 1.8 x 1.6 cm 1. Uterus: Anteverted posterior shadowing in the myometrium 2. Endometrium: Thickened 3. Right Ovary: wnl 4. Left Ovary: ? if left ovary was seen Spectral, color and waveform doppler imaging shows good arterial and venous flow within the ovaries ; there is no evidence for ovarian torsion. 5. Bilateral Adnexa: wnl 6. Posterior cul-de-sac: wnl IMPRESSION: There is borderline thickening of the endometrium measuring 14 mm. No adnexal mass. No free fluid.
[2022-10-02] MEDS ORDERED: MORPHINE SULFATE 4 MG/ML SYRINGE IVP STA (21:56)
[2022-10-02] MEDS ORDERED: TRANEXAMIC ACID IN NACL,ISO-OS 1,000 MG in SALINE 1 100ML.BAG IVPB STA (22:43)
[2022-10-02 22:52] LABS: Appearance,Urine Clear (Clear); Bilirubin,Urine Negative (Negative); Blood,Urine Moderate (Negative); Color,Urine Yellow; Glucose,Urine (UA) Negative (Negative); Ketones,Urine Negative (Negative); Leukocyte Esterase,Urine Negative (Negative); Mucus,Urine Many /hpf; Nitrite,Urine Negative (Negative); PH, Urine 5.5 (5.0-8.0); Protein,Urine Trace (Negative); RBC,Urine 7 /hpf (0-5); Specific Gravity,Urine 1.027 (1.001-1.035); Squamous Epithelial Cell,Urine 1 /hpf (0-4); Urobilinogen,Urine <2.0 mg/dL (<2.0); WBC,Urine 3 /hpf (0-5)
[2022-10-02 23:06] VITALS: BP 130/98; PULSE 77; RESP 16
== END 2022-10-02 23:40 | disposition home or self-care (01) ==
LOC: EC 14:29
DX: N92.0 Excessive and frequent menstruation with regular cycle (principal); I10 Essential (primary) hypertension
CPT/HCPCS: 36415; 86900; 86901; 80053; 85025; 85610; 85730; 86850; 81001; 81025; 93975; 76830; 99284; 96374; 96375 ×2; 96361 ×3; J2270; J2405; J1885

== ENCOUNTER → 2022-11-10 | Outpatient (CLI) | payer BC, OTHER ==
[2022-11-10 22:56] LABS: Basophils # (A) 0.05 X 10*3/uL (0.00-0.10); Basophils % (A) 0.7 %; Eosinophils # (A) 0.18 X 10*3/uL (0.04-0.35); Eosinophils % (A) 2.5 %; HCT 25.4 % (37.2-46.3); HGB 7.6 g/dL (12.0-15.0); Immature Grans, Automated 0.3 %; Lymphocytes # (A) 2.46 X 10*3/uL (0.90-5.00); Lymphocytes % (A) 33.9 %; MCH 24.1 pg (27.0-32.0); MCHC 29.9 g/dL (32.0-37.0); MCV 80.6 fL (80.0-97.0); Monocytes # (A) 0.74 X 10*3/uL (0.20-1.00); Monocytes % (A) 10.2 %; NRBC Per 100 WBC 0 /100 WBCS (0.0-0.0); Neutrophils # (A) 3.81 X 10*3/uL (1.80-7.70); Neutrophils % (A) 52.4 %; Platelet Count 687 X 10*3/uL (140-440); RBC 3.15 X 10*6/uL (4.10-5.20); RDW 17.2 % (11.5-14.5); WBC 7.26 X 10*3/uL (4.50-10.00)
[2022-11-10 23:33] LABS: African American GFR (CKD) 137.1 (60.0-200.0); Anion Gap 8.9 mmol/L (10.00-18.00); Blood Urea Nitrogen 10.7 mg/dL (9.0-27.0); Carbon Dioxide 23.8 mmol/L (20.0-27.5); Non-African American GFR(CKD) 118.3 (60.0-200.0); Potassium 4.7 mmol/L (3.5-5.5)
== END | disposition home or self-care (01) ==
LOC: LABWHC1 15:06
PROVIDERS: ATTEND Obstetrics & Gynecology
DX: Z01.812 Encounter for preprocedural laboratory examination (principal); N92.0 Excessive and frequent menstruation with regular cycle; I10 Essential (primary) hypertension
CPT/HCPCS: 36415; 80051; 82565; 82947; 84520; 85025; 87086

== ENCOUNTER 2022-11-16 06:58 | Day surgery (SDC) | payer BC, OTHER ==
[2022-11-16] MEDS ORDERED: ONDANSETRON 4 MG/2 ML VIAL IVP ONE (07:43)
[2022-11-16] MEDS ORDERED: HYDROmorphone 0.5 MG/0.5 ML SYRINGE IVP PRN (07:43)
[2022-11-16] MEDS ORDERED: DEXAMETHASONE SOD PHOSPHATE 4 MG/ML 1 ML VIAL IV ONE (07:43)
[2022-11-16] MEDS ORDERED: LIDOCAINE 1% (10MG/ML) FOR IV START INTRADERMA PRN (07:43)
[2022-11-16] MEDS ORDERED: SCOPOLAMINE 1 MG/72 HR PATCH TRANSDERM ONE (07:43)
[2022-11-16] MEDS: LACTATED RINGERS 1,000 ML IV SCH ×2 (08:20→14:55)
[2022-11-16 08:46] LABS: Anisocytosis Slight; Basophils % (A) 1 %; Eosinophils # (A) 0.3 k/uL (0-0.7); Eosinophils % (A) 5 %; HCT 27.9 % (34.0-46.0); Hypochromasia Marked; Lymphocytes # (A) 1.8 k/uL (1.0-4.8); Lymphocytes % (A) 30 %; MCH 24.4 pg (25.0-35.0); MCHC 31.7 g/dL (31.0-37.0); Mean Platelet Volume 7.2; Microcytosis Slight; Monocytes # (A) 0.4 k/uL (0-1.0); Monocytes % (A) 7 %; Neutrophils # (A) 3.2 k/uL (1.3-7.7); Neutrophils % (A) 54 %; Platelet Count 469 k/uL (150-450); Poikilocytosis Marked; RBC 3.62 m/uL (3.80-5.40); RDW 18.1 % (11.5-15.5)
[2022-11-16 08:48] LABS: HGB 8.8 gm/dL (11.4-16.0)
[2022-11-16] MEDS ORDERED: MIDAZOLAM 2 MG/2 ML VIAL IVP ONE (08:53)
[2022-11-16] MEDS ORDERED: PROPOFOL 10 MG/ML 20 ML VIAL IV ONE (09:39)
[2022-11-16] MEDS ORDERED: SUCCINYLCHOLINE CHLORIDE 200 MG/10 ML VIAL IV ONE (09:39)
[2022-11-16] MEDS ORDERED: NEOSTIGMINE 1 MG/ML 10 ML VIAL ONE (09:39)
[2022-11-16] MEDS ORDERED: HYDROmorphone (PF) 1 MG/ML ONE (09:39)
[2022-11-16] MEDS ORDERED: MORPHINE SULFATE (PF) 0.3 MG/0.3 ML SYR ONE (09:39)
[2022-11-16] MEDS ORDERED: fentaNYL (PF) 50 MCG/ML 2 ML AMP ONE (09:39)
[2022-11-16] MEDS ORDERED: LIDOCAINE 2% INJ 20 MG/ML (2 ML VIAL) ONE (09:39)
[2022-11-16] MEDS ORDERED: SUGAMMADEX SODIUM 200 MG/2 ML SDV IV ONE (09:39)
[2022-11-16] MEDS ORDERED: MIDAZOLAM 2 MG/2 ML VIAL ONE (09:39)
[2022-11-16] MEDS ORDERED: GLYCOPYRROLATE 0.2 MG/ML 2 ML VIAL ONE (09:39)
[2022-11-16] MEDS ORDERED: ROCURONIUM 10 MG/ML (5 ML VIAL) IV ONE (09:39)
[2022-11-16] MEDS ORDERED: VASOPRESSIN 20 UNIT/ML 1 ML VIAL IM ONE (10:00)
[2022-11-16] MEDS ORDERED: BACITRACIN ZINC 500 UNIT/GM OINT 28.4 GM TUBE TOPICAL ONE (10:12)
[2022-11-16] MEDS ORDERED: LACTATED RINGERS 1,000 ML IV ONE (10:44)
[2022-11-16] MEDS ORDERED: ZOLPIDEM 5 MG TAB PO PRN (11:37)
[2022-11-16] MEDS ORDERED: ONDANSETRON 4 MG/2 ML VIAL IVP PRN (11:37)
[2022-11-16] MEDS ORDERED: SIMETHICONE 80 MG CHEWABLE PO PRN (11:37)
[2022-11-16] MEDS ORDERED: METOCLOPRAMIDE 5 MG/ML 2 ML VIAL IVP PRN (11:37)
--- NOTE | 2022-11-16 11:37 | P.OP ---
Date of Procedure: 11/16/22 Preoperative Diagnosis: menorrhagia, anemia Postoperative Diagnosis: same Procedure(s) Performed: Vaginal hysterectomy Anesthesia: LALITHA Surgeon: Alisha Alberts Machine Operator #1: Flavia Koehler Estimated Blood Loss (ml): 200 IV fluids (ml): 1,000 Urine output (ml): 400 Pathology: other (Cervix and uterus) Condition: stable Disposition: PACU Operative Findings: Normal-appearing ovaries bilaterally Description of Procedure: Patient is brought to the operating suite where a general anesthetic is administered without difficulty after a spinal with Duramorph has been given. Antibiotics are given. The cervix, vagina, perineal body, and lower abdominal wall are all prepped and draped in the usual fashion after the patient is placed in the dorsal lithotomy position. The appropriate timeout is performed to assure proper patient and procedural identification. Bladder is drained for approximately 400 mL of clear yellow urine. Weighted speculum was placed into the vagina and the anterior lip of the cervix is grasped with a double-tooth tenaculum. The cervix is injected circumferentially with a dilute Pitressin solution, 10 mL total used. Scalpel is used in a circumferential fashion to incise the mucosa with a V positioning at 6:00. Peritoneum is entered and suture tied with 2-0 Vicryl held with a hemostat. The large billed speculum is then placed into the peritoneal cavity. At all times the mucosa is swept well from the operative field to avoid bladder and/or ureteral injury. The right uterosacral cardinal ligament is identified, clamped cut and suture ligated, held with a hemostat. Same procedure is carried out contralaterally. Uterine vasculature is identified, clamped cut and suture ligated. 2 additional pedicles are taken superior to the vessels. The uterus is then "walked out" posteriorly. Anterior peritoneum is entered at 12:00 with a Bovie, Kimmie clamps are used around the final pedicles. The uterus and cervix are removed and sent to pathology for evaluation. 0 Vicryl sutures used to secure the pedicles, Cristina stitch is placed, tied, flashed, and retied again for excellent hemostasis. Bilateral ovaries appear normal to inspection. The shallow billed speculum is then placed. The peritoneum is brought around in a pursestring fashion with a 2-0 Vicryl suture. Hemostasis is good. Visualization is difficult secondary to good support. However all vascular pedicles appear clean and dry. The uterosacral cardinal ligaments are brought across now to incorporate the opposite ligament as well as vaginal mucosa. 3 separate [id number] sutures are used to close the vaginal cough. Vagina is packed with a 1 inch iodophor gauze. Seymour is noted to be draining clear urine. All sponge needle and enhancement counts are correct. Patient is brought back to recovery room in good condition with stable vital signs including blood pressure 113/62, pulse 100, 99% O2 saturation. Total estimated blood loss 200 mL, fluid replacement 1000 mL crystalloids.
--- NOTE | 2022-11-16 12:29 | P.ANPRN ---
Procedure Note - Anesthesia - Epidural/Spinal Spinal Time Out Performed: Yes Date of Procedure: 11/16/22 Procedure Start Time: 08:52 Procedure Stop Time: 08:57 Location of Patient: PreOp Indication: Acute Post-Operative Pain Sedation Type: Sedate with meaningful contact maintained Preparation: Sterile Prep Position: Sitting Needle Guage: 25 Blood Aspirated: No Pain Paresthesia on Injection Noted: No Events: Uneventful and Well Tolerated (duramorph 300 mics plus fentanyl 25 mics)
[2022-11-16] MEDS ORDERED: diphenhydrAMINE 50 MG/ML 1 ML VIAL IVP ONE (12:56)
[2022-11-16] MEDS ORDERED: diphenhydrAMINE 50 MG/ML 1 ML VIAL IVP PRN (12:58)
[2022-11-16] MEDS ORDERED: NALOXONE 0.4 MG/ML 1 ML VIAL IV PRN (12:58)
[2022-11-16] MEDS ORDERED: MORPHINE SULFATE 2 MG/ML SYRINGE IVP PRN (12:58)
[2022-11-16] MEDS: KETOROLAC 15 MG/ML 1 ML VIAL IVP PRN (23:27)
[2022-11-17] MEDS: LACTATED RINGERS 1,000 ML IV SCH ×2 (02:00→10:10)
[2022-11-17] MEDS: KETOROLAC 15 MG/ML 1 ML VIAL IVP PRN (06:03)
--- NOTE | 2022-11-17 06:30 | P.PN ---
Progress Note - Text Progress Note Date: 11/17/22 Patient doing well. OOB to chair. Denies headache. + pruritis. Pain minimal. Back spinal site c/d A/P POD#1 s/p spinal duramorph for vaginal hysterectomy - Doing well
[2022-11-17 06:34] LABS: Anisocytosis Slight; Basophils % (A) 0 %; Eosinophils % (A) 0 %; HCT 23.6 % (34.0-46.0); Hypochromasia Marked; Lymphocytes # (A) 1.8 k/uL (1.0-4.8); Lymphocytes % (A) 19 %; MCH 24.1 pg (25.0-35.0); MCHC 30.4 g/dL (31.0-37.0); Mean Platelet Volume 8.5; Microcytosis Slight; Monocytes # (A) 0.5 k/uL (0-1.0); Monocytes % (A) 6 %; Neutrophils # (A) 6.9 k/uL (1.3-7.7); Neutrophils % (A) 73 %; Platelet Count 384 k/uL (150-450); Poikilocytosis Moderate; RBC 2.99 m/uL (3.80-5.40); RDW 18.3 % (11.5-15.5); WBC 9.4 k/uL (3.8-10.6)
[2022-11-17 07:10] LABS: HGB 7.2 gm/dL (11.4-16.0)
--- NOTE | 2022-11-17 09:39 | P.DS ---
Providers Date of admission: 11/16/22 Expected date of discharge: 11/17/22 Attending physician: Alisha Alberts Primary care physician: Willie Cap[facility]anhven [place] Hospital Course: This is a 37-year-old female who presented with continued issues of menorrhagia, and secondary anemia. She has undergone a uterine ablation but continues to have persistently heavy and long menses. Hemoglobin approximate 7.8. After thorough counseling and options, she is electing for vaginal hysterectomy. Please see my dictated history and physical for details. Patient underwent a vaginal hysterectomy under my care yesterday. Estimated blood loss 200 mL's. Ovaries appeared normal and were left in situ. There was very little uterine descensus, but surgery was otherwise unremarkable. Please see my dictated surgical note for details. This morning the patient is doing well. She was initially tachycardic, but pulse this morning is 77, blood pressure 92/60, temperature 98.1. Morning hemoglobin is 7.2. There is no vaginal bleeding. She is voiding and ambulating without issue. She denies lightheadedness or dizziness. She is tolerating regular diet. Patient is judged to be in good condition for discharge home. She is reminded no intercourse, tampons or douching. She will use [id number] Advil or Aleve, or Motrin as needed for pain. She is reminded to call me with any fevers shakes or chills, foul smelling or bloody vaginal drainage, with any pain not alleviated by [id number] products, with any issues regarding defecation or urination. The office with me in 2 weeks. Assessment: Doing well first postoperative day Patient Condition at Discharge: Good Plan - Discharge Summary New Discharge Prescriptions: No Action buPROPion HCL [Wellbutrin SR] 150 mg PO Q12H Ferrous Sulfate [Iron] 325 mg PO TID Losartan Potassium [Cozaar] 100 mg PO QAM Ergocalciferol [Vitamin D2 (1250 Mcg = 96298 Iu)] 50,000 unit PO QMONTHLY Ibuprofen 800 mg PO TID PRN PRN Reason: Pain Albuterol Inhaler [Ventolin Hfa Inhaler] 1 puff INHALATION DIRECTED PRN PRN Reason: ACTIVITY INDUCED ASTHMA diphenhydrAMINE [Benadryl] 25 mg PO DAILY PRN PRN Reason: alleriges Chlorthalidone [Hygroton] 25 mg PO HS Nebivolol HCl [Bystolic] 2.5 mg PO QAM Discharge Medication List Chlorthalidone [Hygroton] 25 mg PO HS 06/06/21 [History] Ergocalciferol [Vitamin D2 (1250 Mcg = 14329 Iu)] 50,000 unit PO QMONTHLY 06/06/21 [History] Ferrous Sulfate [Iron] 325 mg PO TID 06/06/21 [History] Ibuprofen 800 mg PO TID PRN 06/06/21 [History] Losartan Potassium [Cozaar] 100 mg PO QAM 06/06/21 [History] buPROPion HCL [Wellbutrin SR] 150 mg PO Q12H 06/06/21 [History] diphenhydrAMINE [Benadryl] 25 mg PO DAILY PRN 06/06/21 [History] Albuterol Inhaler [Ventolin Hfa Inhaler] 1 puff INHALATION DIRECTED PRN 11/12/22 [History] Nebivolol HCl [Bystolic] 2.5 mg PO QAM 11/12/22 [History] Follow up Appointment(s)/Referral(s): Alisha Alberts MD [STAFF PHYSICIAN] - 2 Weeks
[2022-11-17] MEDS ORDERED: ACETAMINOPHEN TAB 325 MG TAB PO PRN (11:38)
[2022-11-17 14:30] VITALS: RESP 18
[2022-11-17 14:50] VITALS: BP 107/71; PULSE 89; TEMP 98.2
== END 2022-11-17 15:25 ==
LOC: OR 06:58 → 4FBP 12:00 → OR 11-17 15:25
PROVIDERS: ATTEND Obstetrics & Gynecology
DX: N72 Inflammatory disease of cervix uteri (principal); D64.9 Anemia, unspecified; I10 Essential (primary) hypertension; J45.909 Unspecified asthma, uncomplicated; Z79.899 Other long term (current) drug therapy; Z98.891 History of uterine scar from previous surgery; Z98.890 Other specified postprocedural states
CPT/HCPCS: 58260; 81025; 86900; 86901; 85025 ×2; 86850; 88307; J2250; J0330; J1200; J1100; J2710; J0690; J2405; J2274; J3010; J1170; J1885 ×2; J2704; J2001

== ENCOUNTER → 2022-11-24 | Outpatient (CLI) | payer BC, OTHER ==
--- NOTE | 2022-11-27 11:46 | P.HOLTER ---
48 Hour Holter monitor note: Patient wore a Holter monitor for 48 hrs from 11/24/2022 through 11/26/2022. Findings: Patient's baseline heart rate was sinus rhythm. There were no signficant atrial fibrillation, atrial flutter, or ventricular tachycardia episodes. There were no significant pauses greater than 2 seconds. Patient's minimum heart rate was 55. Patient's maximum heart rate was 160. Patient's average heart rate was 93. There were rare PVCs and PACs representing less than 1% PAC and PVC burden. These were asymptomatic. 2 patient activated events of fast heartbeat corresponded with sinus rhythm and sinus tachycardia Conclusions: 48 hour Holter monitor showing normal sinus rhythm with rare PACs and PVCs which were asymptomatic. 2 patient activated events of fast heartbeat corresponding with sinus rhythm and sinus tachycardia.
--- NOTE | 2022-11-30 11:25 | HM ---
48 Hour Holter monitor note: Patient wore a Holter monitor for 48 hrs from 11/24/2022 through 11/26/2022. Findings: Patient's baseline heart rate was sinus rhythm. There were no significant atrial fibrillation, atrial flutter, or ventricular tachycardia episodes. There were no significant pauses greater than 2 seconds. Patient's minimum heart rate was 55. Patient's maximum heart rate was 160. Patient's average heart rate was 93. There were rare PVCs and PACs representing less than 1% PAC and PVC burden. These were asymptomatic. 2 patient activated events of fast heartbeat corresponded with sinus rhythm and sinus tachycardia Conclusions: 48 hour Holter monitor showing normal sinus rhythm with rare PACs and PVCs which were asymptomatic. 2 patient activated events of fast heartbeat corresponding with sinus rhythm and sinus tachycardia. MTDD
== END | disposition home or self-care (01) ==
LOC: RADECHMAIN 11:55
PROVIDERS: ATTEND Family Medicine
DX: I49.3 Ventricular premature depolarization (principal); I49.1 Atrial premature depolarization; R00.0 Tachycardia, unspecified
CPT/HCPCS: 93225; 93226

== ENCOUNTER → 2024-08-03 | Outpatient (CLI) | payer BC ==
--- NOTE | 2024-08-04 08:40 | MM ---
Reason for Exam: Screening (asymptomatic). Patient History: Menarche at age 10. First Full-Term at age 15. Hysterectomy at age 37. Risk Values: Nova 5 year model risk: 0.6%. NCI Lifetime model risk: 9.6%. Tissue Density: There are scattered areas of fibroglandular density. Findings: Analyzed By CAD. There is no suspicious group of microcalcifications or new suspicious mass in either breast. Overall Assessment: Benign, BI-RAD 2 Management: Screening Mammogram of both breasts in 1 year. . Patient should continue monthly self-breast exams. A clinical breast exam by your physician is recommended on an annual basis. This exam should not preclude additional follow-up of suspicious palpable abnormalities. Note on Nova scores and lifetime risk: 1. A Nova score greater than 3% is considered moderate risk. If this is the case, consider specialist referral to assess eligibility for a risk reducing agent. 2. If overall lifetime risk for the development of breast cancer is 20% or higher, the patient may qualify for future screening with alternating mammogram and breast MRI. Electronically signed and approved by: Ga Webber M.D. Radiologis
== END | disposition home or self-care (01) ==
LOC: RADMAMWWP 10:35
PROVIDERS: ATTEND Family Medicine
DX: Z12.31 Encounter for screening mammogram for malignant neoplasm of breast
CPT/HCPCS: 77063; 77067